=== PATIENT | male | born 1940 | race Caucasian/White ===

== ENCOUNTER → 2017-12-17 | Outpatient (CLI) | payer MEDICARE ==
[2017-12-17 10:01] LABS: HCT 42.5 % (39.0-53.0); HGB 14.5 gm/dL (13.0-17.5); MCH 33.6 pg (25.0-35.0); MCV 98.8 fL (80.0-100.0); Mean Platelet Volume 8.6; Platelet Count 152 k/uL (150-450); WBC 4.7 k/uL (3.8-10.6)
[2017-12-17 10:23] LABS: Albumin 4.3 g/dL (3.5-5.0); Calcium 9.3 mg/dL (8.4-10.2); Potassium 4.5 mmol/L (3.5-5.1); Total Bilirubin 0.8 mg/dL (0.2-1.3)
[2017-12-17 10:33] LABS: T4, Free (Free Thyroxine) 0.88 ng/dL (0.78-2.19)
== END | disposition home or self-care (01) ==
LOC: LABWHC1 09:00
PROVIDERS: ATTEND Family Medicine
DX: I48.91 Unspecified atrial fibrillation (principal); N40.1 Benign prostatic hyperplasia with lower urinary tract symptoms; E78.5 Hyperlipidemia, unspecified
CPT/HCPCS: 36415; 80053; 80061; 84439; 84443; 85027

== ENCOUNTER → 2018-02-03 | Outpatient (CLI) | payer MEDICARE ==
[2018-02-03 08:26] LABS: HCT 42.4 % (39.0-53.0); HGB 14.5 gm/dL (13.0-17.5); MCH 34.5 pg (25.0-35.0); MCHC 34.1 g/dL (31.0-37.0); MCV 101.2 fL (80.0-100.0); Mean Platelet Volume 8.4; Platelet Count 138 k/uL (150-450); RBC 4.19 m/uL (4.30-5.90); WBC 4.9 k/uL (3.8-10.6)
[2018-02-03 08:27] LABS: Appearance,Urine Clear (Clear); Bilirubin,Urine Negative (Negative); Blood,Urine Negative (Negative); Color,Urine Light Yellow; Glucose,Urine (UA) Negative (Negative); Ketones,Urine Negative (Negative); Leukocyte Esterase,Urine Negative (Negative); Nitrite,Urine Negative (Negative); PH, Urine 6.5 (5.0-8.0); Protein,Urine Negative (Negative); Urobilinogen,Urine <2.0 mg/dL (<2.0)
[2018-02-03 08:34] LABS: INR 1.4 (<1.2); Partial Thromboplastin Time 26.6 sec (22.0-30.0)
[2018-02-03 08:43] LABS: Albumin 4.4 g/dL (3.5-5.0); Calcium 9.3 mg/dL (8.4-10.2); Potassium 4.4 mmol/L (3.5-5.1); Total Bilirubin 0.6 mg/dL (0.2-1.3)
== END | disposition home or self-care (01) ==
LOC: LABPAT 07:56
PROVIDERS: ATTEND Orthopaedic Surgery
DX: Z01.812 Encounter for preprocedural laboratory examination (principal); M16.12 Unilateral primary osteoarthritis, left hip; Z79.01 Long term (current) use of anticoagulants
CPT/HCPCS: 36415; 80053; 81003; 85027; 85610; 85730; 87070

== ENCOUNTER 2018-02-10 05:36 | Inpatient (IN) | payer MEDICARE ==
[2018-02-03 14:46] VITALS: BMI 28.0
[~2018-02-10 05:36] MED LIST: ACETAMINOPHEN TAB 500 MG TAB PO ONE; LIDOCAINE 1% 20 ML VIAL (10MG/ML) FOR IV START INTRADERMA PRN; MELOXICAM 7.5 MG TAB PO ONE; MORPHINE SULFATE 2 MG/ML SYRINGE IV PRN; ONDANSETRON 4 MG/2 ML VIAL IVP ONE; TRANEXAMIC ACID 1,000 MG in SODIUM CHLORIDE 0.9% 50 ML IVPB ONE; ceFAZolin IN SWFI 2 GM/20 ML SYRINGE IVP ONE
[2018-02-10] MEDS: LACTATED RINGERS 1,000 ML IV SCH ×2 (06:08→07:21)
[2018-02-10 06:38] LABS: Glucose,Whole Blood 114 mg/dL (75-99)
[2018-02-10] MEDS ORDERED: ROPIVACAINE 246.25 MG, EPINEPHrine 0.5 MG, KETOROLAC 30 MG, cloNIDine HCL/PF 80 MCG, WA... MISCELLANE ONE ×5 (06:47)
[2018-02-10 07:15] LABS: INR 1.2 (<1.2); Prothrombin Time 11.5 sec (9.0-12.0)
[2018-02-10 07:18] LABS: Partial Thromboplastin Time 20.2 sec (22.0-30.0)
[2018-02-10] MEDS ORDERED: MIDAZOLAM 2 MG/2 ML VIAL ONE (07:23)
[2018-02-10] MEDS ORDERED: TRANEXAMIC ACID 1,000 MG/10 ML VIAL ONE (07:23)
[2018-02-10] MEDS ORDERED: fentaNYL (PF) 50 MCG/ML 2 ML AMP ONE (07:23)
[2018-02-10] MEDS ORDERED: PROPOFOL 10 MG/ML 20 ML VIAL IV ONE (07:23)
[2018-02-10] MEDS ORDERED: ePHEDrine SULFATE/0.9% NACL/PF 50 MG/5 ML SYRINGE IV ONE (07:23)
[2018-02-10] MEDS ORDERED: SODIUM CHLORIDE 0.9% 100 ML BAG ONE (07:23)
[2018-02-10] MEDS ORDERED: HYDROmorphone 0.5 MG/0.5 ML SYRINGE IVP PRN ×3 (07:27)
[2018-02-10] MEDS ORDERED: hydrOXYzine PAMOATE 25 MG CAP PO PRN (07:27)
[2018-02-10] MEDS ORDERED: DIAZEPAM 5 MG TAB PO PRN ×2 (07:27)
[2018-02-10] MEDS ORDERED: NALOXONE 0.4 MG/ML 1 ML VIAL IV PRN (07:27)
[2018-02-10] MEDS ORDERED: HYDROcodone/APAP 5-325MG 1 EACH TAB PO PRN (07:27)
[2018-02-10] MEDS ORDERED: MAGNESIUM HYDROXIDE 2,400 MG/10 ML CUP PO PRN (07:27)
[2018-02-10] MEDS ORDERED: ONDANSETRON 4 MG/2 ML VIAL IVP PRN (07:27)
[2018-02-10] MEDS ORDERED: LACTATED RINGERS 1,000 ML IV ONE (08:00)
[2018-02-10] MEDS ORDERED: ceFAZolin 3,000 MG in SODIUM CHLORIDE 0.9% IRRIGATIO 3,000 ML IRRIGATION ONE (08:00)
--- NOTE | 2018-02-10 09:03 | P.OP ---
Date of Procedure: 02/10/18 Preoperative Diagnosis: Severe osteoarthritis left hip Postoperative Diagnosis: Severe osteoarthritis left hip Procedure(s) Performed: Left total hip arthroplasty with a direct anterior approach Implants: Barclay and nephew Polarstem size 7 standard Barclay [employer] Nephew R3, 3 hole acetabular shell, 56 mm [employer]clay [employer] Nephew reflection 6.5 mm cancellus screw, 20 mm 2 [employer]clay [employer] Nephew R3, XLPE 20 acetabular liner Barclay [employer] Nephew Oxinium femoral head 36 m, +0 All components were press-fit. The articulation is Oxinium on polyethylene. Anesthesia: spinal Surgeon: Aayush Larry Refinisher #1: Luma Badillo Estimated Blood Loss (ml): 100 Pathology: other (Femoral head) Condition: stable Disposition: PACU Indications for Procedure: After failure of conservative treatment we discussed the surgical and nonsurgical treatment options at length. Patient wishes to proceed with a total hip arthroplasty with a direct anterior approach. Complications specific to this procedure were discussed at length, including but not limited to infection, leg length discrepancy, dislocation, and nerve injury. Patient is aware of all these complications and informed consent was obtained Operative Findings: The operative findings are consistent with severe osteoarthritis of the left hip Description of Procedure: Patient was seen and evaluated in the preoperative area, consent was reviewed, and the surgical site was marked with a skin marker. Patient was then brought to the operating room and given prophylactic antibiotics intravenously. 1 g of Tranexamic acid was also given. A spinal anesthetic was administered by the anesthesia department. The patient was then placed on the [place] table with the bony prominences well-padded. The hip area was then prepped and draped in usual sterile fashion. A universal timeout was then performed, which confirmed the patient's name, surgical site, ALLERGIES, and procedure being performed. Next the incision site was located at 1 cm distal and 1 cm lateral to the anterior superior iliac spine. The skin and subcutaneous tissues were sharply incised. Incision was carefully dissected down to the fascia overlying the tensor fascia marielena muscle. This fascia was then incised in line with the incision. Next, using blunt finger dissection, the tensor fascia marielena muscle was dissected off its investing fascia. The muscle was then carefully retracted laterally with a cobra retractor over the lateral neck of the femur. Next, the circumflex vessels were identified and cauterized using the AquaMantis device. The anterior hip capsule was then exposed. The capsule was then opened and an inverted T fashion. Cobra retractors were then placed intracapsularly. The proximal femur was then visualized. The femoral neck was then osteotomized appropriate level above the lesser trochanter. Small amount of traction was placed with the [place] table. A small wedge of bone was then removed from the remaining femoral head. Next, using a corkscrew femoral head was easily removed from the acetabulum. On gross visual inspection, the femoral head had complete loss of articular cartilage in multiple periarticular osteophytes. Attention was then turned to the acetabulum. the acetabulum was exposed and any remaining labrum was excised. Sequential reaming of the acetabulum was performed using fluoroscopic guidance. When the appropriate size was reached, a trial was then placed. The position and fit of the trial was checked with fluoroscopy. The trial was then removed. Then, using fluoroscopic guidance, the final implant was impacted at 20 of anteversion and 40 of abduction, and fully seated in the acetabulum. 2 screws were then placed in the acetabulum. Again fluoroscopy was used to check position of the screws. Next, the liner was then impacted, with a 20 elevated liner located in the anterior superior quadrant. Component locking was confirmed. Attention was then directed to the femur. With the aid of the [place] table, the femur was externally rotated to approximately 130, extended, and abducted under the opposite leg. A side hook was then placed under the proximal femur, and the side hook elevator was used to elevate the proximal femur. Retractors were then placed. A capsular release was performed, as well as a release of the conjoined tendon, which afforded excellent visualization of the proximal femur. Next, a box osteotome was used to lateralize the proximal femur. A merchandise stocker was then used to locate the femoral canal. Sequential broaching was then performed with appropriate size which afforded excellent fixation in the proximal femur. A trial was then placed with appropriate head and neck, and the hip was gently reduced with the aid of the [place] table. Fluoroscopy was then used to check position of the components, as well as to ensure equal leg lengths. The hip was then gently dislocated and the trials were then removed. Final implants were then impacted and the hip was again reduced. Final fluoroscopic x-rays confirmed that the components were in anatomic position, as well as equal leg lengths. The hip was also taken through range of motion, and found to be stable. The hip was then copiously irrigated with antibiotic solution with pulsatile lavage. The hip was then irrigated with Irrisept solution. The soft tissues were then injected with a ropivacaine solution, which consisted of 246.25 mg of ropivacaine, 0.5 mg of epinephrine, 30 mg of Toradol, 80 g of clonidine, and 48.45 mL of sterile water, for a total of 100 mL of fluid injected. A second dose of 1 g of Tranexamic acid was also given. the fascia was then closed with 2-0 strata fix suture. The subcutaneous tissue was closed with 3-0 Vicryl. The subcuticular tissue was closed with 3-0 strata fix suture. The skin was then closed with Dermabond glue and a sterile silver dressing. The patient was then transferred to the recovery room in stable condition. The surgical physician assistant SUSANNAH Berry was required due to the complexity of surgery, and the need for skilled nursing surgical services director for positioning, draping, exposure, retraction, and closure of the wound.
--- NOTE | 2018-02-10 09:32 | FL ---
Fluoroscopy HISTORY: Anterior hip replacement 33 seconds fluoroscopy time supplied to the referring clinician. 2 intraoperative C-arm images docum ent the procedure. See dictated report from orthopedic surgery.
--- NOTE | 2018-02-10 09:33 | XR ---
Limited left hip HISTORY: Anterior hip replacement 2 intraoperative C-arm images document the procedure
[2018-02-10 09:44] LABS: Glucose,Whole Blood 134 mg/dL (75-99)
--- NOTE | 2018-02-10 10:47 | XR ---
Limited left hip HISTORY: Status post left hip arthroplasty Single frontal view of the left hip Patient is status post left hip arthroplasty. Anatomic alignment suggested in this single view. Lucen cy present in the soft tissues. IMPRESSION: Orthopedic follow-up
[2018-02-10 11:21] LABS: Glucose,Whole Blood 118 mg/dL (75-99)
[2018-02-10] MEDS: ceFAZolin IN SWFI 2 GM/20 ML SYRINGE IVP SCH ×2 (14:40→23:44)
[2018-02-10] MEDS: SODIUM CHLORIDE 0.9% 1,000 ML IV SCH ×2 (14:40→23:50)
[2018-02-10] MEDS: HYDROcodone/APAP 5-325MG 1 EACH TAB PO PRN ×2 (15:40→20:48)
[2018-02-10 17:26] LABS: Glucose,Whole Blood 109 mg/dL (75-99)
[2018-02-10] MEDS ORDERED: ALPRAZolam 0.25 MG TAB PO PRN (19:10)
[2018-02-10] MEDS ORDERED: NITROGLYCERIN SL TABS 0.4 MG TAB SUBLINGUAL PRN (19:10)
[2018-02-10 20:52] LABS: Glucose,Whole Blood 151 mg/dL (75-99)
[2018-02-10] MEDS ORDERED: SENNOSIDES-DOCUSATE SODIUM 1 EACH TAB PO SCH (21:00)
[2018-02-10] MEDS ORDERED: ATORVASTATIN 40 MG TAB PO SCH (21:00)
[2018-02-10] MEDS ORDERED: METOPROLOL SUCCINATE (ER) 100 MG TAB.ER.24H PO SCH (21:00)
[2018-02-10] MEDS ORDERED: PANTOPRAZOLE 40 MG TABLET PO SCH (21:00)
[2018-02-10 22:22] VITALS: PULSE 98
[2018-02-11] MEDS: HYDROcodone/APAP 5-325MG 1 EACH TAB PO PRN (05:52)
[2018-02-11 07:08] LABS: Glucose,Whole Blood 141 mg/dL (75-99)
[2018-02-11 07:26] LABS: Basophils % (A) 0 %; Eosinophils # (A) 0.2 k/uL (0-0.7); Eosinophils % (A) 3 %; HCT 35.6 % (39.0-53.0); HGB 12.1 gm/dL (13.0-17.5); Lymphocytes # (A) 0.9 k/uL (1.0-4.8); Lymphocytes % (A) 13 %; MCH 35.1 pg (25.0-35.0); MCHC 33.9 g/dL (31.0-37.0); MCV 103.5 fL (80.0-100.0); Macrocytosis Slight; Mean Platelet Volume 7.9; Monocytes # (A) 0.5 k/uL (0-1.0); Monocytes % (A) 7 %; Neutrophils # (A) 5.2 k/uL (1.3-7.7); Neutrophils % (A) 75 %; Platelet Count 128 k/uL (150-450); RBC 3.44 m/uL (4.30-5.90); RDW 13.4 % (11.5-15.5); WBC 6.9 k/uL (3.8-10.6)
[2018-02-11 08:32] VITALS: BP 115/67; RESP 17; TEMP 98.8
[2018-02-11] MEDS ORDERED: RIVAROXABAN 20 MG TAB PO SCH (09:00)
[2018-02-11] MEDS ORDERED: ASPIRIN 81 MG PO SCH (09:00)
[2018-02-11] MEDS ORDERED: MULTIVITAMINS, THERA 1 EACH TAB PO SCH (09:00)
[2018-02-11] MEDS ORDERED: HYDROcodone/APAP 7.5-325MG 1 EACH TAB PO PRN ×2 (09:11)
--- NOTE | 2018-02-11 09:17 | P.DS ---
Providers Date of admission: 02/10/18 05:36 Expected date of discharge: 02/11/18 Attending physician: Aayush Larry Consults: 02/10/18 07:27 Consult Physician Routine Consulting Provider: Stephen Juárez Consult Reason/Comments: medical management and anticoagulation Do you want consulting provider notified?: Yes Primary care physician: Stephen Juárez - Discharge Diagnosis(es) (1) Primary osteoarthritis of left hip Current Visit: Yes Status: Acute (2) S/P total hip arthroplasty Current Visit: Yes Status: Acute Hospital Course: This is a 77-year-old male with known history of degenerative arthritis of the left hip. The patient presents for evaluation. After discussion and consideration patient elects to proceed with total hip arthroplasty. The patient is seen preoperatively by Dr. Larry and medically cleared for surgery by their primary care physician. Patient is admitted to [facility] on 02/10/2018 for total hip arthroplasty. The procedures performed without complication or sequelae. The patient is doing well postoperatively. Labs and vital signs are stable on day of discharge. On day of discharge patient's hip incision is healing well. There is minimal erythema. There is no drainage noted at this time. There is minimal soft tissue swelling to the hip and thigh. Patient has full foot and ankle motion without difficulty or pain. Neurovascular status to the left lower extremity is intact. Patient is discharged home in good condition. Please see med rec for accurate list of home medications. Plan - Discharge Summary Discharge Rx Participant: No New Discharge Prescriptions: New HYDROcodone/APAP 7.5-325MG [[place] 7.5-325] 1 - 2 tab PO Q4-6H PRN #90 tab PRN Reason: Pain Sennosides [Senokot] 1 tab PO BID #60 tablet No Action Rivaroxaban [Xarelto] 20 mg PO DAILY Omeprazole [PriLOSEC] 20 mg PO HS [place]-3 Fatty Acids [[place]-3] 1,000 mg PO DAILY Nitroglycerin Sl Tabs [Nitrostat] 0.4 mg SUBLINGUAL Q5M PRN PRN Reason: Chest Pain Multivitamin [Multivitamins] 1 tab PO DAILY Metoprolol Succinate [Toprol XL] 100 mg PO HS Aspirin EC [Ecotrin] 81 mg PO DAILY ALPRAZolam [Alprazolam Odt] 0.25 mg PO HS PRN PRN Reason: Anxiety Rosuvastatin Calcium [Crestor] 20 mg PO MOWEFR Cinnamon Bark [Cinnamon] 500 mg PO DAILY Discharge Medication List ALPRAZolam [Alprazolam Odt] 0.25 mg PO HS PRN 12/19/13 [History] Aspirin EC [Ecotrin] 81 mg PO DAILY 12/19/13 [History] Metoprolol Succinate [Toprol XL] 100 mg PO HS 12/19/13 [History] Multivitamin [Multivitamins] 1 tab PO DAILY 12/19/13 [History] Nitroglycerin Sl Tabs [Nitrostat] 0.4 mg SUBLINGUAL Q5M PRN 12/19/13 [History] [place]-3 Fatty Acids [[place]-3] 1,000 mg PO DAILY 12/19/13 [History] Omeprazole [PriLOSEC] 20 mg PO HS 12/19/13 [History] Rivaroxaban [Xarelto] 20 mg PO DAILY 12/19/13 [History] Cinnamon Bark [Cinnamon] 500 mg PO DAILY 02/03/18 [History] Rosuvastatin Calcium [Crestor] 20 mg PO MOWEFR 02/03/18 [History] HYDROcodone/APAP 7.5-325MG [[place] 7.5-325] 1 - 2 tab PO Q4-6H PRN #90 tab [Rx] Sennosides [Senokot] 1 tab PO BID #60 tablet 02/11/18 [Rx] Follow up Appointment(s)/Referral(s): Stephen Juárez DO [Primary Care Provider] - 2 Weeks Aayush Larry DO [Doctor of Osteopathic Medicine] - 02/26/18 1:50 pm Activity/Diet/Wound Care/Special Instructions: Weightbearing as tolerated with walker Leave dressing intact. Dressing may be removed by home care nurse in 10 days. May shower with dressing on. Follow-up with [facility] in 2 weeks, please call with any questions or concerns [phone] Discharge Disposition: HOME WITH HOME HEALTH SERVICES
--- NOTE | 2018-02-11 10:24 | P.CONS ---
History of Present Illness - Reason for Consult Consult date: 02/11/18 Medical management - Chief Complaint s/p total hip arthroplasty - History of Present Illness 77 year old male who underwent elective left total hip arthroplasty on 02/10/2018. Dr. Juárez was consulted for medical management. The patient has a history of atrial fibrillation, GERD, hyperlipidemia, hypertension, myocardial infarction, and osteoarthritis. He is a former cigarette smoker. The patient was seen and examined at the bedside on rounds with Dr. Juárez. The patient is sitting up in the chair. He is awake and alert. He denies chest pain or pressure. Denies shortness of breath or cough. Denies nausea or vomiting. He states his pain is tolerable. He is anxious to be discharged home today. Review of Systems Those systems with pertinent positive or pertinent negative responses have been documented in the HPI Past Medical History Past Medical History: Atrial Fibrillation, GERD/Reflux, Hyperlipidemia, Hypertension, Myocardial Infarction ([place]), Osteoarthritis ([place]) Additional Past Medical History / Comment(s): diet controlled diabetes per medical clearance not per pt. Last Myocardial Infarction Date:: 1999 History of Any Multi-Drug Resistant Organisms: None Reported Past Surgical History: Appendectomy, Coronary Bypass/CABG, Heart Catheterization Additional Past Surgical History / Comment(s): pilonidal cyst removed, Warthin' s tumor removed, triple bypass 2003 Past Anesthesia/Blood Transfusion Reactions: Previous Problems w/ Anesthesia Additional Past Anesthesia/Blood Transfusion Reaction / Comm: spinal headache years ago after pilonidal surg. Smoking Status: Former smoker - Past Family History Father Family Medical History: Cancer Additional Family Medical History / Comment(s): stomach Mother Family Medical History: Cancer Additional Family Medical History / Comment(s): esophagel & thryoid Medications and Allergies Home Medications Medication Instructions Recorded Confirmed Type ALPRAZolam [Alprazolam Odt] 0.25 mg PO HS PRN 12/19/13 02/10/18 History Aspirin EC [Ecotrin] 81 mg PO DAILY 12/19/13 02/10/18 History Metoprolol Succinate [Toprol XL] 100 mg PO HS 12/19/13 02/10/18 History Multivitamin [Multivitamins] 1 tab PO DAILY 12/19/13 02/10/18 History Nitroglycerin Sl Tabs [Nitrostat] 0.4 mg SUBLINGUAL Q5M PRN 12/19/13 02/10/18 History [place]-3 Fatty Acids [[place]-3] 1,000 mg PO DAILY 12/19/13 02/10/18 History Omeprazole [PriLOSEC] 20 mg PO HS 12/19/13 02/10/18 History Rivaroxaban [Xarelto] 20 mg PO DAILY 12/19/13 02/10/18 History Cinnamon Bark [Cinnamon] 500 mg PO DAILY 02/03/18 02/10/18 History Rosuvastatin Calcium [Crestor] 20 mg PO MOWEFR 02/03/18 02/10/18 History HYDROcodone/APAP 7.5-325MG [[place] 1 - 2 tab PO Q4-6H PRN #90 tab 02/11/18 Rx 7.5-325] Sennosides [Senokot] 1 tab PO BID #60 tablet 02/11/18 Rx Allergies Allergy/AdvReac Type Severity Reaction Status Date / Time shellfish derived [Shellfish] Allergy Unknown Verified 02/10/18 10:21 Physical Exam Vitals: Vital Signs Temp Pulse Resp BP Pulse Ox 02/11/18 08:00 98.8 F 17 115/67 94 L 02/11/18 00:34 99.0 F 98 16 109/60 94 L 02/10/18 19:15 98.3 F 98 16 122/73 99 02/10/18 15:30 98 F 93 16 117/66 97 02/10/18 12:30 68 116/66 95 02/10/18 12:15 68 116/69 95 02/10/18 12:00 79 123/70 96 02/10/18 11:45 79 111/56 100 02/10/18 11:30 63 131/70 100 02/10/18 11:15 63 131/67 100 02/10/18 11:00 69 117/60 93 L 02/10/18 10:45 68 96/36 98 02/10/18 10:30 97.5 F L 68 108/66 98 Intake and Output 02/10/18 02/11/18 02/11/18 22:59 06:59 14:59 Intake Total 577.5 805 Output Total 400 Balance 177.5 805 Intake: Intake, IV Titration 227.5 455 Amount Sodium Chloride 0.9% 1, 227.5 455 000 ml @ 65 mls/hr IV . [id number] [facility] Rx#:[id number] Oral 350 350 Output: Urine 400 Other: Voiding Method Toilet # Voids 2 2 GENERAL: This is a 77-year-old male in no apparent distress at the time of examination. Pleasant and cooperative. HEENT: Head is atraumatic, normocephalic. Pupils are equal, round, and reactive to light. Sclerae anicteric. Conjunctivae are clear. Mucus membranes of the mouth are moist. Neck is supple. RESPIRATORY: Clear to ausculation. No wheezes, rales, or rhonchi. No use of accessory muscles. Patient maintaining oxygen saturation greater than 92%. No chest wall tenderness is noted on palpation or with deep breathing. CARDIOVASCULAR: S1 and S2 noted. No systolic or diastolic murmur auscultated. No JVD noted. No S3 or S4 noted. GASTROINTESTINAL: No distention noted. Abdomen soft and round. Normal active bowel sounds auscultated x 4 quadrants. No pain or tenderness noted upon palpation. INTEGUMENTARY: Dressing to left hip clean dry and intact. No cyanosis. No jaundice. No rashes noted. No cellulitis noted. EXTREMITIES: 2+ peripheral pulses. No evidence of peripheral edema. No calf tenderness noted. NEUROLOGIC: Cranial nerves II-XII intact. PSYCHIATRIC: Awake, alert, and oriented X 3. Appropriate affect. Intact judgement and insight. Results CBC & Chem 7: 02/11/18 07:08 Labs: Abnormal Lab Results - Last 24 Hours (Table) 02/10/18 02/10/18 02/10/18 Range/Units 11:09 17:24 20:23 RBC (4.30-5.90) m/uL Hgb (13.0-17.5) gm/dL Hct (39.0-53.0) % MCV (80.0-100.0) fL MCH (25.0-35.0) pg Plt Count (150-450) k/uL Lymphocytes # (1.0-4.8) k/uL POC Glucose (mg/dL) 118 H 109 H 151 H (75-99) mg/dL 02/11/18 02/11/18 Range/Units 07:05 07:08 RBC 3.44 L (4.30-5.90) m/uL Hgb 12.1 L (13.0-17.5) gm/dL Hct 35.6 L (39.0-53.0) % MCV 103.5 H (80.0-100.0) fL MCH 35.1 H (25.0-35.0) pg Plt Count 128 L (150-450) k/uL Lymphocytes # 0.9 L (1.0-4.8) k/uL POC Glucose (mg/dL) 141 H (75-99) mg/dL Assessment and Plan Plan: ASSESSMENT: Osteoarthritis, status post left total hip arthroplasty History of coronary artery disease with previous CABG Chronic atrial fibrillation, maintained on long-term anticoagulation with Xarelto Hypertension Hyperlipidemia PLAN: Continue postoperative care per orthopedics. Resume home medications as appropriate. Resume anticoagulation with Xarelto when okay with orthopedics. Pain control. Activity as tolerated. Patient may be discharged from a medical standpoint when cleared by orthopedics. Nurse practitioner note has been reviewed by physician. Signing provider agrees with the documented findings, assessment, and plan of care.
[2018-02-11 11:43] LABS: Hemoglobin A1C 5.9 % (4.0-6.0)
== END 2018-02-11 10:20 | disposition home health service (06) | DRG 470 ==
LOC: 2ORMAIN 05:36 → 3SUR 09:27
PROVIDERS: ADMIT Orthopaedic Surgery; ATTEND Orthopaedic Surgery
PROC: 30233N0 Transfusion of Autologous Red Blood Cells into Peripheral Vein, Percutaneous Approach (ICD-10-PCS; 2018-02-10)
PROC: 0SRB06A Replacement of Left Hip Joint with Oxidized Zirconium on Polyethylene Synthetic Substitute, Uncemented, Open Approach (ICD-10-PCS; principal; 2018-02-10 07:30)
DX: M16.12 Unilateral primary osteoarthritis, left hip (principal); K21.9 Gastro-esophageal reflux disease without esophagitis; I25.2 Old myocardial infarction; I10 Essential (primary) hypertension; E78.5 Hyperlipidemia, unspecified; E11.9 Type 2 diabetes mellitus without complications; I25.10 Atherosclerotic heart disease of native coronary artery without angina pectoris; I48.2 Chronic atrial fibrillation; R26.81 Unsteadiness on feet; Z91.013 Allergy to seafood; Z79.899 Other long term (current) drug therapy; Z79.01 Long term (current) use of anticoagulants; Z79.82 Long term (current) use of aspirin; Z95.1 Presence of aortocoronary bypass graft; Z87.891 Personal history of nicotine dependence; Z82.49 Family history of ischemic heart disease and other diseases of the circulatory system
CPT/HCPCS: 73501; 83036; 85025; 85610; 85730; 86850; 86900; 86901; 88300

== ENCOUNTER 2018-02-22 11:18 | Inpatient (IN) | payer MEDICARE ==
[2018-02-22] MEDS ORDERED: IBUPROFEN 600 MG TAB PO STA (11:36)
[2018-02-22] MEDS ORDERED: ACETAMINOPHEN TAB 500 MG TAB PO STA (11:36)
[2018-02-22] MEDS ORDERED: cefTRIAXone 2,000 MG in SODIUM CHLORIDE 0.9% 100 ML IVPB STA (11:37)
[2018-02-22] MEDS ORDERED: cefTRIAXone IN SWFI 2,000 MG/20 ML SYRINGE IVP STA (11:39)
--- NOTE | 2018-02-22 11:43 | ED ---
General Adult HPI - General Chief complaint: Fever Stated complaint: fever Time Seen by Provider: 02/22/18 11:20 Source: patient, family, RN notes reviewed Mode of arrival: wheelchair Limitations: no limitations - History of Present Illness Initial comments: This is a 77-year-old male who presents emergency Department with a recent hip surgery. Patient states for the last 12 days he's been having intermittent fevers. Patient states he has been feeling extremely weak and tired. Patient states he has had a cough but no sputum production. Patient denies any chest pain palpitations difficulty breathing or shortness of breath. Patient denies any abdominal pain patient denies any nausea or vomiting. Patient denies any dysuria hematuria urinary frequency. Patient denies any redness around the incision site. Patient denies any significant hip pain. Patient denies any other lesions or erythema or rashes. Patient denies headache patient denies numbness weakness. Patient denies lightheadedness or dizziness. - Related Data Home Medications Medication Instructions Recorded Confirmed Aspirin EC [Ecotrin] 81 mg PO DAILY 12/19/13 02/22/18 Multivitamin [Multivitamins] 1 tab PO DAILY 12/19/13 02/22/18 Nitroglycerin Sl Tabs [Nitrostat] 0.4 mg SUBLINGUAL Q5M PRN 12/19/13 02/22/18 [place]-3 Fatty Acids [[place]-3] 1,000 mg PO DAILY 12/19/13 02/22/18 Omeprazole [PriLOSEC] 20 mg PO AC-SUPPER 12/19/13 02/22/18 Rivaroxaban [Xarelto] 20 mg PO AC-SUPPER 12/19/13 02/22/18 Cinnamon Bark [Cinnamon] 500 mg PO BID 02/03/18 02/22/18 Rosuvastatin Calcium [Crestor] 20 mg PO MOWEFR@2100 02/03/18 02/22/18 ALPRAZolam [Xanax] 0.25 mg PO HS PRN 02/22/18 02/22/18 Metoprolol Succinate (ER) [Toprol 100 mg PO AC-SUPPER 02/22/18 02/22/18 Xl] Allergies Allergy/AdvReac Type Severity Reaction Status Date / Time shellfish derived [Shellfish] Allergy Swelling Verified 02/22/18 12:06 Review of Systems ROS Statement: Those systems with pertinent positive or pertinent negative responses have been documented in the HPI. ROS Other: All systems not noted in ROS Statement are negative. Past Medical History Past Medical History: Atrial Fibrillation, Myocardial Infarction ([place]) Additional Past Medical History / Comment(s): appendicitis Last Myocardial Infarction Date:: 1999 History of Any Multi-Drug Resistant Organisms: None Reported Past Surgical History: Appendectomy, Orthopedic Surgery Additional Past Surgical History / Comment(s): left hip Past Anesthesia/Blood Transfusion Reactions: Previous Problems w/ Anesthesia Additional Past Anesthesia/Blood Transfusion Reaction / Comment(s): spinal headache years ago after pilonidal surg. Past Psychological History: No Psychological Hx Reported Smoking Status: Former smoker Past Alcohol Use History: None Reported Past Drug Use History: None Reported - Past Family History Father Family Medical History: Cancer Additional Family Medical History / Comment(s): stomach Mother Family Medical History: Cancer Additional Family Medical History / Comment(s): esophagel & thryoid General Exam - General Exam Comments Initial Comments: GENERAL: Patient is well-developed and well-nourished. Patient is nontoxic and well- hydrated and is in no acute distress. ENT: Neck is soft and supple. No significant lymphadenopathy is noted. Oropharynx is clear. Moist mucous membranes. Neck has full range of motion without eliciting any pain. EYES: The sclera were anicteric and conjunctiva were pink and moist. Extraocular movements were intact and pupils were equal round and reactive to light. Eyelids were unremarkable. PULMONARY: Crackles right upper lobe CARDIOVASCULAR: There is a regular rate and rhythm without any murmurs gallops or rubs. ABDOMEN: Soft and nontender with normal bowel sounds. No palpable organomegaly was noted. There is no palpable pulsatile mass. SKIN: Skin is clear with no lesions or rashes and otherwise unremarkable. NEUROLOGIC: Patient is alert and oriented x3. Cranial nerves II through XII are grossly intact. Motor and sensory are also intact. Normal speech, volume and content. Symmetrical smile. MUSCULOSKELETAL: Normal extremities with adequate strength and full range of motion. No lower extremity swelling or edema. No calf tenderness. The incision site on the left hip is healing well no signs of infection patient is able to move the left hip without pain.. LYMPHATICS: No significant lymphadenopathy is noted PSYCHIATRIC: Normal psychiatric evaluation. Normal interpersonal interactions appears functionally intact in deals appropriately with others. No signs of depression. No signs of anxiety. Limitations: no limitations Course Vital Signs 02/22/18 02/22/18 11:20 12:11 Temperature 99.8 F H Pulse Rate 106 H 92 Respiratory 18 18 Rate Blood Pressure 89/52 110/59 O2 Sat by Pulse 95 97 Oximetry Medical Decision Making - Medical Decision Making Lactate came back at 2.5 patient was initially hypotensive so at this point in time 1211 I considered the patient to be septic EKG shows atrial fibrillation at 99 bpm QRS 100 a QT interval 346 QTC is 444. Patient's EKG shows no ST segment elevation or depression or T wave abnormalities are noted Chest x-ray shows a middle lobe pneumonia. As stated the patient on antibiotics I gave the patient over 30 mL as per KG. Patient blood pressure was above 100 after the initial bolus I spoke with Dr. Jacqueline rolle except the patient I admitted the patient. - Lab Data Result diagrams: 02/22/18 11:40 02/22/18 11:40 Lab Results 02/22/18 02/22/18 02/22/18 Range/Units 11:40 11:40 11:40 WBC 6.2 (3.8-10.6) k/uL RBC 3.90 L (4.30-5.90) m/uL Hgb 13.4 (13.0-17.5) gm/dL Hct 40.1 (39.0-53.0) % MCV 102.7 H (80.0-100.0) fL MCH 34.4 (25.0-35.0) pg MCHC 33.5 (31.0-37.0) g/dL RDW 12.8 (11.5-15.5) % Plt Count 215 (150-450) k/uL Neutrophils % 78 % Lymphocytes % 12 % Monocytes % 6 % Eosinophils % 1 % Basophils % 1 % Neutrophils # 4.9 (1.3-7.7) k/uL Lymphocytes # 0.7 L (1.0-4.8) k/uL Monocytes # 0.4 (0-1.0) k/uL Eosinophils # 0.1 (0-0.7) k/uL Basophils # 0.0 (0-0.2) k/uL Macrocytosis Slight PT (9.0-12.0) sec INR (<1.2) APTT (22.0-30.0) sec Sodium 138 (137-145) mmol/L Potassium 5.0 (3.5-5.1) mmol/L Chloride 103 (98-107) mmol/L Carbon Dioxide 21 L (22-30) mmol/L Anion Gap 14 mmol/L BUN 24 H (9-20) mg/dL Creatinine 1.10 (0.66-1.25) mg/dL Est GFR (CKD-EPI)AfAm 75 (>60 ml/min/1.73 sqM) Est GFR (CKD-EPI)NonAf 65 (>60 ml/min/1.73 sqM) Glucose 130 H (74-99) mg/dL Plasma Lactic Acid Tony (0.7-2.0) mmol/L Calcium 9.0 (8.4-10.2) mg/dL Total Bilirubin 0.5 (0.2-1.3) mg/dL AST 41 (17-59) U/L ALT 38 (21-72) U/L Alkaline Phosphatase 81 (38-126) U/L Total Creatine Kinase 49 L (55-170) U/L CK-MB (CK-2) 0.4 (0.0-2.4) ng/mL CK-MB (CK-2) Rel Index 0.8 Troponin I 0.012 (0.000-0.034) ng/mL Total Protein 6.8 (6.3-8.2) g/dL Albumin 3.8 (3.5-5.0) g/dL 02/22/18 02/22/18 Range/Units 11:40 11:40 WBC (3.8-10.6) k/uL RBC (4.30-5.90) m/uL Hgb (13.0-17.5) gm/dL Hct (39.0-53.0) % MCV (80.0-100.0) fL MCH (25.0-35.0) pg MCHC (31.0-37.0) g/dL RDW (11.5-15.5) % Plt Count (150-450) k/uL Neutrophils % % Lymphocytes % % Monocytes % % Eosinophils % % Basophils % % Neutrophils # (1.3-7.7) k/uL Lymphocytes # (1.0-4.8) k/uL Monocytes # (0-1.0) k/uL Eosinophils # (0-0.7) k/uL Basophils # (0-0.2) k/uL Macrocytosis PT 13.7 H (9.0-12.0) sec INR 1.5 H (<1.2) APTT 24.4 (22.0-30.0) sec Sodium (137-145) mmol/L Potassium (3.5-5.1) mmol/L Chloride (98-107) mmol/L Carbon Dioxide (22-30) mmol/L Anion Gap mmol/L BUN (9-20) mg/dL Creatinine (0.66-1.25) mg/dL Est GFR (CKD-EPI)AfAm (>60 ml/min/1.73 sqM) Est GFR (CKD-EPI)NonAf (>60 ml/min/1.73 sqM) Glucose (74-99) mg/dL Plasma Lactic Acid Tony 2.5 H* (0.7-2.0) mmol/L Calcium (8.4-10.2) mg/dL Total Bilirubin (0.2-1.3) mg/dL AST (17-59) U/L ALT (21-72) U/L Alkaline Phosphatase (38-126) U/L Total Creatine Kinase (55-170) U/L CK-MB (CK-2) (0.0-2.4) ng/mL CK-MB (CK-2) Rel Index Troponin I (0.000-0.034) ng/mL Total Protein (6.3-8.2) g/dL Albumin (3.5-5.0) g/dL Critical Care Time Critical Care Time: Yes Total Critical Care Time: 35 Disposition Clinical Impression: Sepsis, Pneumonia Disposition: ADMITTED IP TO THIS HOSP Referrals: Stephen Juárez DO [Primary Care Provider] - 1-2 days Time of Disposition: 12:39
[2018-02-22] MEDS: SODIUM CHLORIDE 0.9% 500 ML IV SCH ×4 (11:54→14:12)
[2018-02-22 11:58] LABS: Basophils % (A) 1 %; Eosinophils # (A) 0.1 k/uL (0-0.7); Eosinophils % (A) 1 %; HCT 40.1 % (39.0-53.0); HGB 13.4 gm/dL (13.0-17.5); Lymphocytes # (A) 0.7 k/uL (1.0-4.8); Lymphocytes % (A) 12 %; MCH 34.4 pg (25.0-35.0); MCHC 33.5 g/dL (31.0-37.0); MCV 102.7 fL (80.0-100.0); Macrocytosis Slight; Mean Platelet Volume 7.4; Monocytes # (A) 0.4 k/uL (0-1.0); Monocytes % (A) 6 %; Neutrophils # (A) 4.9 k/uL (1.3-7.7); Neutrophils % (A) 78 %; Platelet Count 215 k/uL (150-450); RDW 12.8 % (11.5-15.5); WBC 6.2 k/uL (3.8-10.6)
[2018-02-22 12:01] LABS: Albumin 3.8 g/dL (3.5-5.0); Total Bilirubin 0.5 mg/dL (0.2-1.3); Total Protein 6.8 g/dL (6.3-8.2)
[2018-02-22 12:02] LABS: INR 1.5 (<1.2); Partial Thromboplastin Time 24.4 sec (22.0-30.0); Prothrombin Time 13.7 sec (9.0-12.0)
[2018-02-22 12:23] LABS: Creatine Kinase MB 0.4 ng/mL (0.0-2.4); Troponin I 0.012 ng/mL (0.000-0.034)
--- NOTE | 2018-02-22 12:37 | XR ---
EXAMINATION TYPE: XR chest 2V DATE OF EXAM: 02/22/2018 HISTORY: Fever. REFERENCE: NONE. FINDINGS: There is a right middle lobe infiltrate. The left lung is clear. Pleural space are clear. T he heart is not enlarged. There is been a previous midline sternotomy. IMPRESSION: RIGHT MIDDLE LOBE PNEUMONIA.
[2018-02-22] MEDS ORDERED: SODIUM CHLORIDE 0.9% 1,000 ML IV ONE (12:38)
[2018-02-22] MEDS ORDERED: AZITHROMYCIN 500 MG in DEXTROSE 5% IN WATER 250 ML IVPB STA ×2 (12:39)
[2018-02-22] MEDS ORDERED: PNEUMONIA PROTOCOL UTILIZED 1 EACH MISC PO PRN (12:39)
[2018-02-22 15:14] VITALS: BMI 27.3
[2018-02-22] MEDS: SODIUM CHLORIDE 0.9% 1,000 ML IV SCH (15:45)
[2018-02-22] MEDS ORDERED: ALPRAZolam 0.25 MG TAB PO PRN (15:45)
[2018-02-22] MEDS ORDERED: NITROGLYCERIN SL TABS 0.4 MG TAB SUBLINGUAL PRN (15:45)
[2018-02-22] MEDS: PANTOPRAZOLE 40 MG TABLET PO SCH (17:23)
[2018-02-22] MEDS: RIVAROXABAN 20 MG TAB PO SCH (17:24)
[2018-02-22 17:44] LABS: Appearance,Urine Clear (Clear); Bilirubin,Urine Negative (Negative); Blood,Urine Negative (Negative); Color,Urine Yellow; Glucose,Urine (UA) Negative (Negative); Ketones,Urine Negative (Negative); Leukocyte Esterase,Urine Negative (Negative); Nitrite,Urine Negative (Negative); PH, Urine 5.5 (5.0-8.0); Protein,Urine Trace (Negative); Specific Gravity,Urine 1.015 (1.001-1.035); Urobilinogen,Urine <2.0 mg/dL (<2.0)
[2018-02-22] MEDS ORDERED: NON-FORMULARY DRUG (Cinnamon Bark [Cinnamon] 500 MG) PO SCH (21:00)
[2018-02-22] MEDS: ACETAMINOPHEN TAB 325 MG TAB PO PRN (21:22)
[2018-02-22] MEDS ORDERED: IPRATROPIUM-ALBUTEROL 3 ML NEB INHALATION PRN (21:49)
--- NOTE | 2018-02-22 21:52 | P.HPIM ---
History of Present Illness H&P Date: 02/22/18 Chief Complaint: Fever Patient is a 77-year-old male with a known history of atrial fibrillation on anticoagulation, history of [place] and osteoarthritis with recent history of hip surgery about 4 days ago on January came to ER with complaints of fever and cough with T-max 102.8 last night. As per the patient he has been having intermittent fever for the past 12 days and was at rehab and recently was transferred home. Since then patient has been feeling very weak and tired and has been draining fever everyday. Patient is also complaining of cough without much sputum production. Patient became febrile again and is feeling very weak and was brought to the hospital by his for further evaluation. Patient denies any chest pain palpitations difficulty breathing or shortness of breath. Patient denies any abdominal pain patient denies any nausea or vomiting. Patient denies any dysuria hematuria urinary frequency. Patient denies any redness around the incision site. Patient denies any significant hip pain. Patient denies any other lesions or erythema or rashes. Patient denies headache patient denies numbness weakness. Patient denies lightheadedness or dizziness. Chest x-ray showed right middle lobe pneumonia Lactic acid 2.5 WBC 6.2 Review of Systems Constitutional: Patient denies any fever or chills . No generalized weakness or weight loss. Abdomen: Patient denied nausea vomiting and diarrhea and abdominal pain. Cardiovascular: Patient denies any chest pain or short of breath no palpitations. Respiratory: Patient does have cough without production. No shortness of breath Neurologic: Patient denied any numbness or tingling headache. Musculoskeletal: Patient denies any complaints of joint swelling or deformity. Skin: Negative Psychiatric: Negative Endocrine: No heat or cold intolerance. No recent weight gain. Genitourinary: No dysuria or hematuria. 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 Past Psychological History: No Psychological Hx Reported Smoking Status: Former smoker Past Alcohol Use History: None Reported Past Drug Use History: None Reported - Past Family History Father Family Medical History: Cancer Additional Family Medical History / Comment(s): stomach Mother Family Medical History: Cancer Additional Family Medical History / Comment(s): esophagel & thryoid Medications and Allergies Home Medications Medication Instructions Recorded Confirmed Type Aspirin EC [Ecotrin] 81 mg PO DAILY 12/19/13 02/22/18 History Multivitamin [Multivitamins] 1 tab PO DAILY 12/19/13 02/22/18 History Nitroglycerin Sl Tabs [Nitrostat] 0.4 mg SUBLINGUAL Q5M PRN 12/19/13 02/22/18 History [place]-3 Fatty Acids [[place]-3] 1,000 mg PO DAILY 12/19/13 02/22/18 History Omeprazole [PriLOSEC] 20 mg PO AC-SUPPER 12/19/13 02/22/18 History Rivaroxaban [Xarelto] 20 mg PO AC-SUPPER 12/19/13 02/22/18 History Cinnamon Bark [Cinnamon] 500 mg PO BID 02/03/18 02/22/18 History Rosuvastatin Calcium [Crestor] 20 mg PO MOWEFR@2100 02/03/18 02/22/18 History ALPRAZolam [Xanax] 0.25 mg PO HS PRN 02/22/18 02/22/18 History Metoprolol Succinate (ER) [Toprol 100 mg PO AC-SUPPER 02/22/18 02/22/18 History Xl] Allergies Allergy/AdvReac Type Severity Reaction Status Date / Time shellfish derived [Shellfish] Allergy Swelling Verified 02/22/18 12:06 Physical Exam Vitals: Vital Signs Temp Pulse Pulse Resp BP BP Pulse Ox 02/22/18 15:16 97.2 F L 76 101/62 96 02/22/18 14:28 97.2 F L 76 101/62 96 02/22/18 14:00 87 18 96/61 97 02/22/18 13:26 82 16 100/60 97 02/22/18 12:47 97.6 F 96 18 96/57 96 02/22/18 12:11 92 18 110/59 97 02/22/18 11:20 99.8 F H 106 H 18 89/52 95 Intake and Output 02/22/18 02/22/18 02/22/18 06:59 14:59 22:59 Other: Weight 91.626 kg PHYSICAL EXAMINATION: Patient is lying in the bed comfortably, no acute distress, awake alert and oriented.. HEENT: Normocephalic. Neck is supple. Pupils reactive. Nostrils clear. Oral cavity is moist. Ears reveal no drainage. Neck reveals no JVD, carotid bruits, or thyromegaly. CHEST EXAMINATION: Trachea is central. Symmetrical expansion. Right sided bronchial sounds. Mild expiratory wheeze Lung sheppard clear to auscultation and percussion. CARDIAC: Normal S1, S2 with no gallops. No murmurs ABDOMEN: Soft. Bowel sounds normal. No organomegaly. No abdominal bruits. Extremities: reveal no edema. No clubbing or cyanosis Neurologically awake, alert, oriented x3 with well-coordinated movements. No focal deficits noted Skin: No rash or skin lesions. Psychiatric: Coperative. Nonsuicidal Musculoskeletal: No joint swelling or deformity. Normal range of motion. Results CBC & Chem 7: 02/22/18 11:40 02/22/18 11:40 Labs: Abnormal Lab Results - Last 24 Hours (Table) 02/22/18 02/22/18 02/22/18 Range/Units 11:40 11:40 11:40 RBC 3.90 L (4.30-5.90) m/uL MCV 102.7 H (80.0-100.0) fL Lymphocytes # 0.7 L (1.0-4.8) k/uL PT (9.0-12.0) sec INR (<1.2) Carbon Dioxide 21 L (22-30) mmol/L BUN 24 H (9-20) mg/dL Glucose 130 H (74-99) mg/dL Plasma Lactic Acid Tony (0.7-2.0) mmol/L Total Creatine Kinase 49 L (55-170) U/L 02/22/18 02/22/18 Range/Units 11:40 11:40 RBC (4.30-5.90) m/uL MCV (80.0-100.0) fL Lymphocytes # (1.0-4.8) k/uL PT 13.7 H (9.0-12.0) sec INR 1.5 H (<1.2) Carbon Dioxide (22-30) mmol/L BUN (9-20) mg/dL Glucose (74-99) mg/dL Plasma Lactic Acid Tony 2.5 H* (0.7-2.0) mmol/L Total Creatine Kinase (55-170) U/L Thrombosis Risk Factor Assmnt - Choose All That Apply Other Risk Factors: Yes Each Risk Factor Represents 2 Points: Age 61-74 years Thrombosis Risk Factor Assessment Total Risk Factor Score: 2 Thrombosis Risk Factor Assessment Level: Low Risk Assessment and Plan Assessment: Sepsis secondary to right middle lobe pneumonia Fever, tachycardia and lactic acidosis Recent left hip arthroplasty Atrial fibrillation on anticoagulation with xarelto History of coronary artery bypass graft in 2003 Previous history of smoking History of [place] Plan: Patient will be continued on antibiotics in the form of ceftriaxone and azithromycin. Continue with IV hydration. Continue the home medications and breathing treatments. Follow up closely. Further recommendations based on the clinical course. Time with Patient: Greater than 30
[2018-02-23] MEDS: ACETAMINOPHEN TAB 325 MG TAB PO PRN ×3 (04:49→16:20)
--- NOTE | 2018-02-23 06:46 | XR ---
EXAMINATION TYPE: XR chest 2V DATE OF EXAM: 02/23/2018 HISTORY: pneumonia. REFERENCE: Previous study dated 02/22/2018. FINDINGS: Right middle lobe pneumonia persists, unchanged from previous. There is underlying overinfl ation of the lungs. Pleural spaces are clear. There has been a previous midline sternotomy. IMPRESSION: 1. CONTINUING RIGHT MIDDLE LOBE PNEUMONIA. 2. COPD. 3. POSTOPERATIVE CHANGE.
[2018-02-23 07:12] LABS: Basophils % (A) 1 %; Eosinophils # (A) 0.3 k/uL (0-0.7); Eosinophils % (A) 6 %; HCT 34.8 % (39.0-53.0); HGB 11.5 gm/dL (13.0-17.5); Lymphocytes # (A) 0.8 k/uL (1.0-4.8); Lymphocytes % (A) 17 %; MCH 33.6 pg (25.0-35.0); MCV 101.9 fL (80.0-100.0); Macrocytosis Slight; Mean Platelet Volume 7.7; Monocytes # (A) 0.3 k/uL (0-1.0); Monocytes % (A) 7 %; Neutrophils # (A) 3.1 k/uL (1.3-7.7); Neutrophils % (A) 66 %; Platelet Count 203 k/uL (150-450); RBC 3.42 m/uL (4.30-5.90); RDW 12.8 % (11.5-15.5); WBC 4.6 k/uL (3.8-10.6)
[2018-02-23 07:21] LABS: Calcium 8.4 mg/dL (8.4-10.2); Potassium 5.1 mmol/L (3.5-5.1)
[2018-02-23] MEDS: AZITHROMYCIN 500 MG TAB PO SCH (08:14)
[2018-02-23] MEDS: cefTRIAXone IN SWFI 1,000 MG/10 ML SYRINGE IVP SCH (08:14)
[2018-02-23] MEDS: ASPIRIN 81 MG PO SCH (08:14)
[2018-02-23] MEDS ORDERED: NON-FORMULARY DRUG (Omega-3 Fatty Acids [Omega-3] 1,000 MG) PO SCH (09:00)
[2018-02-23] MEDS: SODIUM CHLORIDE 0.9% 1,000 ML IV SCH ×2 (10:10→12:02)
[2018-02-23] MEDS ORDERED: MULTIVITAMINS, THERA 1 EACH TAB PO SCH (12:00)
[2018-02-23] MEDS: METOPROLOL TARTRATE 50 MG TAB PO SCH ×2 (14:42→21:43)
[2018-02-23] MEDS: BENZOCAINE/MENTHOL LOZENG 1 EACH LOZENGE MUCOUS MEM PRN ×2 (15:13→21:43)
[2018-02-23] MEDS: PANTOPRAZOLE 40 MG TABLET PO SCH (17:27)
[2018-02-23] MEDS: RIVAROXABAN 20 MG TAB PO SCH (17:27)
--- NOTE | 2018-02-23 23:41 | P.PN ---
Subjective Progress Note Date: 02/23/18 Principal diagnosis: Pneumonia Patient is a 77-year-old male with a known history of atrial fibrillation on anticoagulation, history of [place] and osteoarthritis with recent history of hip surgery about 4 days ago on January came to ER with complaints of fever and cough with T-max 102.8 last night. As per the patient he has been having intermittent fever for the past 12 days and was at rehab and recently was transferred home. Since then patient has been feeling very weak and tired and has been draining fever everyday. Patient is also complaining of cough without much sputum production. Patient became febrile again and is feeling very weak and was brought to the hospital by his for further evaluation. Patient denies any chest pain palpitations difficulty breathing or shortness of breath. Patient denies any abdominal pain patient denies any nausea or vomiting. Patient denies any dysuria hematuria urinary frequency. Patient denies any redness around the incision site. Patient denies any significant hip pain. Patient denies any other lesions or erythema or rashes. Patient denies headache patient denies numbness weakness. Patient denies lightheadedness or dizziness. Chest x-ray showed right middle lobe pneumonia Lactic acid 2.5 WBC 6.2 02/23/2018 Patient denied any complaints of chest pain. Breathing status is much improved. No fever no chills. Patient was tachycardic this morning which is improved after starting back is home medication, metoprolol. Blood cultures and urine cultures showed no growth. Anticipate discharged tomorrow. All other review of systems negative except the above Objective - Vital Signs Vital signs: Vital Signs Temp 98 F 02/23/18 14:58 Pulse 84 02/23/18 14:58 Resp 16 02/23/18 14:58 BP 160/83 02/23/18 14:58 Pulse Ox 96 02/23/18 14:58 Intake & Output 02/23/18 02/23/18 02/24/18 06:59 18:59 06:59 Intake Total 2700 1370 Output Total 550 Balance 2150 1370 Intake: Intake, IV Titration 1600 850 Amount Sodium Chloride 0.9% 1, 1600 850 000 ml @ 100 mls/hr IV . Q10H SAMUEL Rx#:[id number] Oral 1100 520 Output: Urine 550 Other: Voiding Method Toilet # Voids 3 - Exam PHYSICAL EXAMINATION: Patient is lying in the bed comfortably, no acute distress, awake alert and oriented.. HEENT: Normocephalic. Neck is supple. Pupils reactive. Nostrils clear. Oral cavity is moist. Ears reveal no drainage. Neck reveals no JVD, carotid bruits, or thyromegaly. CHEST EXAMINATION: Trachea is central. Symmetrical expansion. Lung sheppard clear to auscultation and percussion. CARDIAC: Normal S1, S2 with no gallops. No murmurs ABDOMEN: Soft. Bowel sounds normal. No organomegaly. No abdominal bruits. Extremities: reveal no edema. No clubbing or cyanosis Neurologically awake, alert, oriented x3 with well-coordinated movements. No focal deficits noted Skin: No rash or skin lesions. Psychiatric: Coperative. Nonsuicidal Musculoskeletal: No joint swelling or deformity. Normal range of motion. - Labs CBC & Chem 7: 02/23/18 06:20 02/23/18 06:20 Labs: Abnormal Lab Results - Last 24 Hours (Table) 02/23/18 02/23/18 Range/Units 06:20 06:20 RBC 3.42 L (4.30-5.90) m/uL Hgb 11.5 L (13.0-17.5) gm/dL Hct 34.8 L (39.0-53.0) % MCV 101.9 H (80.0-100.0) fL Lymphocytes # 0.8 L (1.0-4.8) k/uL Glucose 123 H (74-99) mg/dL Microbiology - Last 24 Hours (Table) 02/22/18 17:37 Urine Culture - Final Urine,Clean Catch 02/22/18 11:40 Blood Culture - Preliminary Blood No Growth after 24 hours Assessment and Plan Assessment: Sepsis secondary to right middle lobe pneumonia. Improving clinically Fever, tachycardia and lactic acidosis on admission Recent left hip arthroplasty Atrial fibrillation on anticoagulation with xarelto History of coronary artery bypass graft in 2003 Previous history of smoking History of [place] Plan: Patient will be continued on antibiotics in the form of ceftriaxone and azithromycin. Continue with IV hydration. Continue the home medications and breathing treatments. Follow up closely. Further recommendations based on the clinical course. Time with Patient: Greater than 30
[2018-02-24 07:05] VITALS: BP 137/81; PULSE 89; RESP 16; TEMP 98.1
[2018-02-24] MEDS: ASPIRIN 81 MG PO SCH (08:35)
[2018-02-24] MEDS: METOPROLOL TARTRATE 50 MG TAB PO SCH (08:35)
[2018-02-24] MEDS: AZITHROMYCIN 500 MG TAB PO SCH (08:35)
[2018-02-24] MEDS: cefTRIAXone IN SWFI 1,000 MG/10 ML SYRINGE IVP SCH (08:35)
--- NOTE | 2018-02-24 10:53 | P.DS ---
Providers Date of admission: 02/22/18 12:39 Expected date of discharge: 02/24/18 Attending physician: Tiara Phillips Primary care physician: Stephen Juárez [facility] Course: 77 year old male who presented to the ER with a history of weakness, fever, and cough. The patient recently underwent total hip replacement. Patient was septic and hypotensive upon admission to the hospital. Chest xray showed right middle lobe pneumonia. He was treated with IV fluids and antibiotics and improved over the course of hospitalization. His vital signs have been stable. Denies shortness of breath or coughing. He states he feels he is back at his baseline. He was deemed stable for discharge. A prescription for Ceftin 500mg BID x 5 days was sent to the patients pharmacy. He is to follow up with Dr. Juárez in 1 week. DISCHARGE DIAGNOSIS: Sepsis secondary to right middle lobe pneumonia, likely improved at time of discharge Fever, tachycardia and lactic acidosis on admission, resolved Recent left hip arthroplasty Atrial fibrillation on anticoagulation with xarelto History of coronary artery bypass graft in 2003 Previous history of smoking History of [place] Nurse practitioner note has been reviewed by physician. Signing provider agrees with the documented findings, assessment, and plan of care. Patient Condition at Discharge: Stable Plan - Discharge Summary Discharge Rx Participant: Yes New Discharge Prescriptions: No Action Rivaroxaban [Xarelto] 20 mg PO AC-SUPPER Omeprazole [PriLOSEC] 20 mg PO AC-SUPPER [place]-3 Fatty Acids [[place]-3] 1,000 mg PO DAILY Nitroglycerin Sl Tabs [Nitrostat] 0.4 mg SUBLINGUAL Q5M PRN PRN Reason: Chest Pain Multivitamin [Multivitamins] 1 tab PO DAILY Aspirin EC [Ecotrin] 81 mg PO DAILY Rosuvastatin Calcium [Crestor] 20 mg PO MOWEFR@2100 Cinnamon Bark [Cinnamon] 500 mg PO BID Metoprolol Succinate (ER) [Toprol Xl] 100 mg PO AC-SUPPER ALPRAZolam [Xanax] 0.25 mg PO HS PRN PRN Reason: Insomnia Discharge Medication List Aspirin EC [Ecotrin] 81 mg PO DAILY 12/19/13 [History] Multivitamin [Multivitamins] 1 tab PO DAILY 12/19/13 [History] Nitroglycerin Sl Tabs [Nitrostat] 0.4 mg SUBLINGUAL Q5M PRN 12/19/13 [History] [place]-3 Fatty Acids [[place]-3] 1,000 mg PO DAILY 12/19/13 [History] Omeprazole [PriLOSEC] 20 mg PO AC-SUPPER 12/19/13 [History] Rivaroxaban [Xarelto] 20 mg PO AC-SUPPER 12/19/13 [History] Cinnamon Bark [Cinnamon] 500 mg PO BID 02/03/18 [History] Rosuvastatin Calcium [Crestor] 20 mg PO MOWEFR@2100 02/03/18 [History] ALPRAZolam [Xanax] 0.25 mg PO HS PRN 02/22/18 [History] Metoprolol Succinate (ER) [Toprol Xl] 100 mg PO AC-SUPPER 02/22/18 [History] Cefuroxime Axetil [Ceftin] 500 mg PO BID #10 tab 02/24/18 [Rx] Follow up Appointment(s)/Referral(s): Stephen Juárez DO [Primary Care Provider] - 1-2 days
[2018-02-24] MEDS ORDERED: ATORVASTATIN 40 MG TAB PO SCH (21:00)
== END 2018-02-24 11:11 | disposition home or self-care (01) | DRG 871 ==
LOC: EC 11:18 → 3SUR 12:39
PROVIDERS: ADMIT Internal Medicine; ATTEND Internal Medicine
DX: A41.9 Sepsis, unspecified organism (principal); J18.9 Pneumonia, unspecified organism; E87.2 Acidosis; I25.2 Old myocardial infarction; I48.91 Unspecified atrial fibrillation; Z79.01 Long term (current) use of anticoagulants; Z79.82 Long term (current) use of aspirin; Z87.891 Personal history of nicotine dependence; Z95.1 Presence of aortocoronary bypass graft; Z96.642 Presence of left artificial hip joint; Z79.899 Other long term (current) drug therapy; Z91.013 Allergy to seafood
CPT/HCPCS: 36415; 71046; 80048; 80053; 81003; 82550; 82553; 83605; 84484; 85025; 85610; 85730; 87040; 87070; 87086; 87205; 93005; 96361; 96365; 96366; 99285

== ENCOUNTER 2020-03-01 10:42 | Emergency (ER) | payer MEDICARE, OTHER ==
[2020-03-01 10:47] VITALS: TEMP 97.7
[2020-03-01] MEDS ORDERED: MORPHINE SULFATE 4 MG/ML SYRINGE IVP STA (11:07)
[2020-03-01] MEDS ORDERED: ceFAZolin 1,000 MG VIAL (IM USE) IM STA (11:07)
[2020-03-01] MEDS ORDERED: DIPH,PERTUS(ACELL)TETVAC-LF 0.5 ML VIAL IM ONE (11:20)
[2020-03-01] MEDS ORDERED: SODIUM CHLORIDE 0.9% 1,000 ML IV STA (11:20)
--- NOTE | 2020-03-01 11:29 | ED ---
Wound/Laceration HPI - General Chief Complaint: Wound/Laceration Stated Complaint: Hand laceration Time Seen by Provider: 03/01/20 10:49 Source: patient Mode of arrival: ambulatory Limitations: no limitations - History of Present Illness Initial Comments: Patient is a 79-year-old male presenting to the emergency Department with complaints of a laceration to his left hand. Patient states he was hanging up his trimmer press clippings when it somehow turned on while he was holding onto the blade area. Patient states he is on Xarelto secondary to A. fib. Patient does not remember his last tetanus vaccine. He states he wrapped it his hand in a towel and came straight to the ER. Patient is right-hand dominant. He denies any other injuries. He has no further complaints. Upon arrival to the ER, his vitals are stable. - Related Data Home Medications Medication Instructions Recorded Confirmed Aspirin EC [Ecotrin Low Dose] 81 mg PO DAILY 12/19/13 02/22/18 Multivitamin [Multivitamins] 1 tab PO DAILY 12/19/13 02/22/18 Nitroglycerin Sl Tabs [Nitrostat] 0.4 mg SUBLINGUAL Q5M PRN 12/19/13 02/22/18 [place]-3 Fatty Acids [[place]-3] 1,000 mg PO DAILY 12/19/13 02/22/18 Omeprazole [PriLOSEC] 20 mg PO AC-SUPPER 12/19/13 02/22/18 Rivaroxaban [Xarelto] 20 mg PO AC-SUPPER 12/19/13 02/22/18 Cinnamon Bark [Cinnamon] 500 mg PO BID 02/03/18 02/22/18 Rosuvastatin Calcium [Crestor] 20 mg PO MOWEFR@2100 02/03/18 02/22/18 ALPRAZolam [Xanax] 0.25 mg PO HS PRN 02/22/18 02/22/18 Metoprolol Succinate (ER) [Toprol 100 mg PO AC-SUPPER 02/22/18 02/22/18 XL] Previous Rx's Medication Instructions Recorded Cefuroxime Axetil [Ceftin] 500 mg PO BID #10 tab 02/24/18 Allergies Allergy/AdvReac Type Severity Reaction Status Date / Time shellfish derived [Shellfish] Allergy Swelling Verified 03/01/20 10:43 Review of Systems ROS Statement: Those systems with pertinent positive or pertinent negative responses have been documented in the HPI. ROS Other: All systems not noted in ROS Statement are negative. 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 Past Psychological History: No Psychological Hx Reported Past Alcohol Use History: None Reported Past Drug Use History: None Reported - Past Family History Father Family Medical History: Cancer Additional Family Medical History / Comment(s): stomach Mother Family Medical History: Cancer Additional Family Medical History / Comment(s): esophagel & thryoid General Exam - General Exam Comments Initial Comments: GENERAL: Well-appearing, well-nourished and in no acute distress. HEAD: Atraumatic, normocephalic. EYES: Pupils equal round and reactive to light, extraocular movements intact, sclera anicteric, conjunctiva are normal. ENT: TMs normal, nares patent, oropharynx clear without exudates. Moist mucous membranes. NECK: Normal range of motion, supple without lymphadenopathy or JVD. LUNGS: Breath sounds clear to auscultation bilaterally and equal. No wheezes rales or rhonchi. HEART: Regular rate and rhythm without murmurs, rubs or gallops. ABDOMEN: Soft, nontender, normoactive bowel sounds. No guarding, no rebound. No masses appreciated. : Deferred EXTREMITIES: Patient has significant trauma injury to left hand, palmar aspect. Patient has lacerations over the palmar aspect of all 4 fingers, in between DIP and IP joints, as well as what appears to be an open fracture of the middle finger. He also has a laceration to the left palm. Patient is not able to flex the middle finger, the distal end is dusky, begining cyanotic. Patient is able to flex all other fingers except for middle finger. NEUROLOGICAL: Normal speech, normal gait. PSYCH: Normal mood, normal affect. SKIN: Warm, Dry, normal turgor, no rashes. Limitations: no limitations Course Vital Signs 03/01/20 10:44 Temperature 97.7 F Pulse Rate 81 Respiratory 16 Rate Blood Pressure 155/80 O2 Sat by Pulse 98 Oximetry Procedures - Procedures Initial comment: Irrigated left hand wounds, applied pressure bandages. Medical Decision Making - Medical Decision Making Patient is a 79-year-old male here for significant trauma injury to his left hand. Patient's trimmer press clippings turned on when he was holding it with left hand. He has obvious open fracture of the left middle finger as well as multiple lacerations across all 4 digits. Pt is on Xarleto secondary to A. fib. Patient's wounds were irrigated, his wounds continues to ooze. We did apply several pressure bandages as well as hand elevation. The patient's middle finger is becoming dusky, cyanotic. Patient received pain medicine, anscef, Tetanus vaccine. X-rays did reveal a comminuted displaced fracture of the middle phalanx of the third digit, as well as some obvious soft tissue swelling and injury. We did discuss case with our hand surgeons however they were both unavailable. Patient will be transferred to [facility], Dr. Hogan was accepting. Patient is agreement with this plan of care. He'll be transferred by EMS. Case is discussed in detail with Dr. Bach. Disposition Clinical Impression: Open fracture of phalanx of left middle finger, Laceration of multiple sites of left hand and fingers Disposition: OTHER INSTITUTION NOT DEFINED Condition: Stable Additional Instructions: Transferred to [facility] ER via EMS. Referrals: Stephen Juárez DO [Primary Care Provider] - 1-2 days - Out of Hospital Transfer - Req. Specs Out of Hospital Transfer - Requested Specifics: Other Emergency Center ([facility])
--- NOTE | 2020-03-01 11:53 | XR ---
Left hand HISTORY: Trauma and pain 3 views of the left hand There is soft tissue swelling present at the second, third, fourth digits, lucency is present in the soft tissues of the hand consistent with patient's laceration. Comminuted displaced fracture of the m iddle phalanx of the third digit is present. No evident dislocation. Surgical clips are present at th e level the radial styloid. Small metallic foreign bodies present along the medial soft tissues of th e proximal phalanx of the second digit left hand measuring 3 mm x 1 mm. IMPRESSION: Posttraumatic findings as described.
[2020-03-01 12:41] VITALS: RESP 20
[2020-03-01 12:44] VITALS: BP 129/78; PULSE 78
== END 2020-03-01 12:45 | disposition other institution (70) ==
LOC: EC 10:42
DX: S62.623B Displaced fracture of middle phalanx of left middle finger, initial encounter for open fracture (principal); S61.211A Laceration without foreign body of left index finger without damage to nail, initial encounter; S61.217A Laceration without foreign body of left little finger without damage to nail, initial encounter; S61.215A Laceration without foreign body of left ring finger without damage to nail, initial encounter; S61.012A Laceration without foreign body of left thumb without damage to nail, initial encounter; I48.91 Unspecified atrial fibrillation; I25.2 Old myocardial infarction; Z79.82 Long term (current) use of aspirin; Z79.01 Long term (current) use of anticoagulants; Z79.899 Other long term (current) drug therapy; Z91.013 Allergy to seafood; W31.89XA Contact with other specified machinery, initial encounter
CPT/HCPCS: 73130; 90715; 99284; 90471; 96374; 96372; J2270; J0690